=== PATIENT | male | born 1995 | race Caucasian/White ===

== ENCOUNTER 2019-10-03 13:37 | Emergency (ER) | payer OTHER ==
[~2019-10-03] VITALS: Ht 167.6 cm; Wt 74.8 kg
[2019-10-03 13:40] VITALS: BP 118/74
--- NOTE | 2019-10-03 13:50 | NUR ---
PT WAS BIBA FOR SUICIDAL IDEATION. PT WAS FOUND LYING IN THE MIDDLE OF THE STREET BY PD, AND PLACED ON 5150 HOLD. PT HAS CLEAR AND EXCESSIVE SPEECH, IRRITATION, AND FEAR TO TOUCH UPON TRIAGE. VSS, A&OX2, AND SKIN IS INTACT. PT DENIES ANY FEVER, CP, SOB, OR COUGH AT THIS TIME; PATIENT STATES PAIN OF 0/10 AT THIS TIME; VSS; PATIENT POSITIONED FOR COMFORT; HOB ELEVATED; BEDRAILS UP X2; BED DOWN. ER MD MADE AWARE OF PT STATUS.
[2019-10-03] MEDS ORDERED: LORazepam 2 MG/ML VIAL IM ONE (13:55)
[2019-10-03] MEDS ORDERED: diphenhydrAMINE 50 MG/ML VIAL IM ONE (13:55)
[2019-10-03] MEDS ORDERED: HALOPERIDOL IM 5 MG/ML VIAL IM ONE (13:55)
--- NOTE | 2019-10-03 14:21 | NUR ---
PT IS EATING IN THE BED.
[2019-10-03 15:05] LABS: BARBITURATE, URINE NEGATIVE ng/ml (NEG <=200); BENZODIAZEPINE, URINE NEGATIVE ng/mL (NEG <=200); CANNABINOID, URINE POSITIVE ng/mL (NEG <=50); COCAINE, URINE NEGATIVE ng/mL (NEG <=300); OPIATE, URINE NEGATIVE ng/mL (NEG <=2000); PHENCYCLIDINE SCREEN,URINE NEGATIVE ng/mL (NEG <=25)
--- NOTE | 2019-10-03 15:35 | NUR ---
PT IS SLEEPING IN THE BED WITH VSS SHOWED ON THE MONITOR. 1-1 SITTER IS AT BEDSIDE.
--- NOTE | 2019-10-03 16:53 | NUR ---
PT IS SLEEPING IN THE BED WITH VSS SHOWED ON THE MONITOR. 1-1 SITTER IS AT BEDSIDE.
[2019-10-03 17:25] LABS: BASOPHILS # (AUTO) 0.1 K/uL (0.00-0.22); BASOPHILS % (AUTO) 0.9 % (0.0-2.0); EOSINOPHILS # (AUTO) 0.1 K/uL (0-0.4); EOSINOPHILS % (AUTO) 1.3 % (0.0-4.0); HEMATOCRIT 42.5 % (36-52); HEMOGLOBIN 13.8 g/dL (12.0-18.0); LYMPHOCYTES # (AUTO) 2.2 K/uL (2.0-11.5); LYMPHOCYTES % (AUTO) 35.4 % (20.5-51.1); MEAN CORPUSCULAR HEMOGLOBIN 29 pg (27-31); MEAN CORPUSCULAR HGB CONC 32 g/dL (33-37); MONOCYTES # (AUTO) 0.3 K/uL (0.8-1.0); MONOCYTES % (AUTO) 5.4 % (1.7-9.3); NEUTROPHILS # (AUTO) 3.5 K/uL (1.8-7.7); PLATELET COUNT (AUTO) 214 K/uL (140-450); RED BLOOD CELL COUNT(AUTO) 4.72 MIL/uL (4.20-6.10); RED CELL DISTRIBUTION WIDTH 14.5 % (11.6-13.7); WHITE BLOOD COUNT (AUTO) 6.1 K/uL (4.8-10.8)
[2019-10-03 17:44] LABS: ALBUMIN 3.2 g/dL (3.4-5.0); ANION GAP 9.8 (8-16); ASPARTATE AMINOTRANSFERASE 35 U/L (15-37); CARBON DIOXIDE 30.1 mmol/L (21-32); CHLORIDE 109 mmol/L (98-107); CREATININE 0.9 mg/dL (0.6-1.3); GFR ARICAN-AMERICAN 134 mL/min (>90); GLUCOSE 123 mg/dL (74-106); POTASSIUM 3.9 mmol/L (3.5-5.1); SODIUM SERUM 145 mmol/L (136-145); TOTAL BILIRUBIN 0.4 mg/dL (0.0-1.0); UREA NITROGEN, BLOOD 8 mg/dL (7-18)
[2019-10-03 17:45] LABS: ACETAMINOPHEN < 0.5 ug/ml (10-30); SALICYLATE < 2.8 mg/dL (2.8-20.0)
--- NOTE | 2019-10-03 18:39 | NUR ---
PT IS SLEEPING IN THE BED. VSS SHOWED ON THE MONITOR. 1-1 SITTER IS AT BEDSIDE.
--- NOTE | 2019-10-03 19:21 | NUR ---
REPORT GIVEN TO ANALY CHARGE NURSE FOR CONTINUITY OF CARE
--- NOTE | 2019-10-03 19:45 | NUR ---
pt on 1:1 watch. Pt given a sandwitch and taken. On process looking for a [facility] facility to transfer the pt.
--- NOTE | 2019-10-03 20:21 | NUR ---
pt asleep on bed. He is quiet and cooperative at this time.
--- NOTE | 2019-10-03 20:42 | NUR ---
Called the following facilities [facility] no beds for charla Alvarado patient needs Covid test for consideration [facility] packet faxed for wait list [facility] packet faxed for wait list [facility] no beds
--- NOTE | 2019-10-03 20:46 | NUR ---
[facility] s/w [facility], no beds but packet faxed for later discharges [facility] beds
--- NOTE | 2019-10-03 21:03 | NUR ---
Packet faxed to [facility]
--- NOTE | 2019-10-03 22:23 | NUR ---
PT ASLEEP ON BED. ON CONTINIOUS MONITORING.
--- NOTE | 2019-10-03 22:45 | NUR ---
RECIVED REPORT FROM CHARGE NURSE ANALY BILLINGSLEY.
[2019-10-04] MEDS ORDERED: LORazepam 2 MG/ML VIAL IM/IVP ONE ×2 (00:10→00:35)
[2019-10-04] MEDS ORDERED: diphenhydrAMINE 50 MG/ML VIAL IM ONE (00:10)
[2019-10-04] MEDS ORDERED: HALOPERIDOL IM 5 MG/ML VIAL IM ONE ×2 (00:10→01:55)
--- NOTE | 2019-10-04 00:17 | NUR ---
[employer] at bedside.
--- NOTE | 2019-10-04 00:20 | NUR ---
PT AGITATED, SCREAMING, KICKING AND POSTURING TO STAFF. PT STATES "I KNOW YOU GUYS ARE OUT TO GET ME!." UNABLE TO REORIENT PT. ERMD MADE AWARE AND GAVE ORDER FOR ATIVAN 2MG, BENDRYL 50MG, HALDOL 5MG GIVEN TO PT.
--- NOTE | 2019-10-04 01:50 | NUR ---
PT CONTINUES TO SCREAM AND THREATEN STAFF. "ILL FUCKEN PUNCH YOU! I SWEAR TO GOD." PT UNABLE TO REORIENT. ERMD MADE AWARE AND GAVE ORDER FOR ANOTHER ATIVAN 2MG TO BE GIVEN IM.
--- NOTE | 2019-10-04 02:30 | NUR ---
PT RESTING IN BED. EYES CLOSED RESPIRATIONS AR EVEN AND UNLABORED. SKIN IS WARM AND DRY TO TOUCH. PT VSS.
--- NOTE | 2019-10-04 04:16 | NUR ---
PT RESPOSPONSIVE TO VERBAL STIMULI. PT VSS. PT GIVEN EXTRA BLANKET FOR COMFORT. PT CONTINUES ON 1:[address] SITTER[address] SI PRECAUTIONS IN PLACE.
--- NOTE | 2019-10-04 05:05 | NUR ---
SPOKE TO EDILMA FROM [facility]. SHE STATES WILLING TO ACCEPT PT. ACCEPTING DOCTOR WILL BE DR. MORALES. PT TO BE TAKEN TO UNIT 1.
--- NOTE | 2019-10-04 05:52 | NUR ---
PT CONTINUES ON SUICIDE PRECAUTIONS. 1:1 SITTER AT BEDSIDE. PT RESTING IN BED WITH EYES CLOSED. RESPIRATIONS ARE EVEN AND UNLABORED. SKIN IS WARM AND DRY TO TOUCH. BED LOCKED AND IN LOWEST POSITION. SIDE RAIL UP X 1.
--- NOTE | 2019-10-04 06:00 | NUR ---
Patient to be transferred to [facility]. Is being transferred due to SUICIDAL IDEATIONS. Receiving facility has accepting physician and available space. ER physician has signed transfer form. Patient or responsible republican has agreed to transfer and signed form. Patient belongings inventoried and will be sent with patient. Copy of nursing notes, lab reports, EKG, Physicians Orders and X-rays to be sent with patient. Report called to EDILMA at receiving facility. [facility] ambulance service transfer.
[2019-10-04 06:09] VITALS: BP 100/60
--- NOTE | 2019-10-04 06:09 | NUR ---
Patient trasnfered with v/s stable. Patient verbalized understanding. Ambulance Transport with to [facility]. All questions addressed prior to transfer. Belongings sent with pt. AMANDA.
== END 2019-10-04 06:09 ==
LOC: MED 13:37
DX: R45.851 Suicidal ideations (principal)
CPT/HCPCS: 36415; 80053; 80305; 85025; 93005; 96372; 99285; G0480; G0482; J1200; J1630; J2060